=== PATIENT | male | born 1950 | race Caucasian/White ===

== ENCOUNTER 2018-06-15 06:38 | Inpatient (IN) | payer MEDICARE, OTHER ==
[~2018-06-15] VITALS: Ht 188 cm; Wt 123.2 kg
[~2018-06-15 06:38] MED LIST: ACET-66 PO; AUD NEB; DULO30CA2 PO; FERR-89 PO; KDUR20 PO; MENT3.5O TP; MIDO5TAB23 PO; PANT40TA25 PO; TEMA15CA PO
[2018-06-15] MEDS ORDERED: ALBUTEROL SULFATE 5 MG/ML 20 ML NEB SOLN [BULK] NEB ONE (07:00)
[2018-06-15] MEDS ORDERED: MethylPREDNISolone SOD SUCC 125 MG/2 ML VIAL IVP ONE (07:00)
[2018-06-15] MEDS ORDERED: IPRATROPIUM BROMIDE 0.5 MG/2.5 ML NEB SOLUTION NEB ONE (07:00)
[2018-06-15 07:26] LABS: BASOPHILS % (AUTO) 0.6 % (0.0-2.0); EOSINOPHILS % (AUTO) 2.8 % (1.0-6.0); HEMOGLOBIN 14.9 g/dL (13.5-17.5); LYMPHOCYTES # (AUTO) 4.4 K/uL (1.0-4.8); MEAN CORPUSCULAR HEMOGLOBIN 26.8 pg (26.0-34.0); MEAN CORPUSCULAR HGB CONC 30.4 G/dL (31.0-37.0); MEAN CORPUSCULAR VOLUME 88 fL (80-100); MONOCYTES % (AUTO) 10.3 % (2.0-9.0); NEUTROPHILS # (AUTO) 3.5 K/uL (1.8-7.7); NEUTROPHILS % (AUTO) 38.3 % (40.0-70.0); PLATELET COUNT (AUTO) 204 K/uL (150-450); RED BLOOD CELL COUNT(AUTO) 5.57 MIL/uL (4.50-5.90); RED CELL DISTRIBUTION WIDTH 17.3 % (11.5-14.5)
[2018-06-15 07:29] LABS: HEMATOCRIT 47.1 % (41-53)
[2018-06-15 07:36] LABS: ANION GAP 1 mmol/L (8-16); CALCIUM, TOTAL 8.4 mg/dL (8.8-10.5); CARBON DIOXIDE 38 mmol/L (22-29); CHLORIDE 99 mmol/L (98-107); CREATININE 0.81 mg/dL (0.60-1.30); GLOMERULAR FILTR. RATE CALC > 60 mL/min (>60); GLUCOSE,RANDOM 149 mg/dL (70-110); POTASSIUM 4.1 mmol/L (3.5-5.1); SODIUM SERUM 138 mmol/L (136-145); UREA NITROGEN, BLOOD 13 mg/dL (7-18)
[2018-06-15 07:42] LABS: ALANINE AMINOTRANSFERASE 11 U/L (12-78); ALKALINE PHOSPHATASE 65 U/L (46-116); ASPARTATE AMINOTRANSFERASE 20 U/L (15-37); BILIRUBIN,TOTAL 0.2 mg/dL (0.1-1.0); TOTAL PROTEIN, SERUM 6.6 g/dL (6.4-8.2)
[2018-06-15 07:49] LABS: B-TYPE NATRIURETIC PEPTIDE 47 pg/mL (0-100)
[2018-06-15 08:32] LABS: ABG A-A DIFF O2 73.8 mmHg (10-20.0); ABG CARBOXYHEMOGLOBIN 2.3 % (0.0-1.5); ABG METHEMOGLOBIN 0.3 % (0.0-1.5); ABG OXYGEN CONTENT 20.2 mL/dL (15.0-23.0); ABG OXYGEN SATURATION 93.6 % (95.0-98.0); ABG OXYHEMOGLOBIN 91.2 % (94.0-100.0); ABG TOTAL HEMOGLOBIN 15.7 G/dL (12.0-18.0); PO2, ARTERIAL BG 80.7 mmHg (79.0-87.0); SOURCE, BLOOD GAS ARTERIAL; TEMPERATURE, FAHRENHEIT, BG 98.6 FAHREN (96.0-98.6)
[2018-06-15 08:33] LABS: ABG PCO2 88 mmHg (35-45); ABG PH 7.182 (7.35-7.450); O2 DEVICE,BLOOD GAS AEROSOL MASK (ROOM AIR); SITE, BLOOD GAS RT RADIAL
[2018-06-15 09:51] LABS: ABG BASE EXCESS 7.9 mmol/L (-2.0-3.0); ABG CARBOXYHEMOGLOBIN 2.4 % (0.0-1.5); ABG HCO3 28.5 mmol/L (22.0-26.0); ABG METHEMOGLOBIN 0.2 % (0.0-1.5); ABG OXYGEN CONTENT 19.5 mL/dL (15.0-23.0); ABG OXYGEN SATURATION 89.3 % (95.0-98.0); PO2, ARTERIAL BG 62.2 mmHg (79.0-87.0); SOURCE, BLOOD GAS ARTERIAL; TEMPERATURE, FAHRENHEIT, BG 98.6 FAHREN (96.0-98.6)
[2018-06-15 09:52] LABS: ABG PCO2 76 mmHg (35-45); O2 DEVICE,BLOOD GAS BIPAP (ROOM AIR); SITE, BLOOD GAS RT RADIAL
[2018-06-15 09:53] LABS: INSPIRATORY TIME, BG 0.9 SEC
[2018-06-15] MEDS ORDERED: ACETAMINOPHEN 325 MG TABLET PO PRN ×2 (10:00→12:30)
[2018-06-15] MEDS ORDERED: ONDANSETRON HCL 4 MG/2 ML VIAL IVP PRN ×2 (10:00→12:30)
[2018-06-15] MEDS ORDERED: ALBUTEROL SULFATE 2.5 MG/0.5 ML NEB SOLUTION NEB SCH (11:00)
[2018-06-15] MEDS ORDERED: IPRATROPIUM BROMIDE 0.5 MG/2.5 ML NEB SOLUTION NEB SCH (11:00)
[2018-06-15] MEDS ORDERED: MAGNESIUM HYDROXIDE SUSPENSION 30 ML UDCUP PO PRN (12:30)
[2018-06-15] MEDS ORDERED: IPRATROPIUM BROMIDE 0.5 MG/2.5 ML NEB SOLUTION NEB PRN (12:30)
[2018-06-15] MEDS ORDERED: ALBUTEROL SULFATE 2.5 MG/0.5 ML NEB SOLUTION NEB PRN (12:30)
[2018-06-15] MEDS ORDERED: MORPHINE SULFATE 2 MG/ML SYRINGE IVP PRN (12:30)
[2018-06-15] MEDS ORDERED: BISACODYL 10 MG RECTAL RECTAL SUPPOSITORY PR PRN (12:30)
[2018-06-15] MEDS ORDERED: HYDROCODONE/ACETAMINOPHEN 5-325 MG TABLET PO PRN (12:30)
[2018-06-15] MEDS ORDERED: BENZONATATE 100 MG CAPSULE PO PRN (12:30)
[2018-06-15 14:02] VITALS: BP 109/60
[2018-06-15] MEDS ORDERED: LORazepam 2 MG/ML VIAL ONE (14:26)
[2018-06-15] MEDS ORDERED: LORazepam 2 MG/ML VIAL IVP PRN (14:30)
[2018-06-15 15:57] VITALS: BP 119/72
[2018-06-15] MEDS ORDERED: HALOPERIDOL LACTATE 5 MG/ML VIAL IVP PRN (16:30)
[2018-06-15] MEDS: MIDODRINE HCL 5 MG TABLET PO SCH ×2 (18:32→21:00)
[2018-06-15] MEDS: BENZONATATE 100 MG CAPSULE PO SCH ×2 (18:33→21:00)
[2018-06-15] MEDS: HEPARIN SODIUM,PORCINE 5,000 UNITS/ML VIAL SQ SCH ×2 (18:33→23:34)
[2018-06-15] MEDS: MethylPREDNISolone SOD SUCC 125 MG/2 ML VIAL IVP SCH ×2 (18:34→23:35)
[2018-06-15 18:54] LABS: LACTIC ACID 6.7 mmol/L (0.4-2.0)
[2018-06-15] MEDS: ALBUTEROL SULFATE 2.5 MG/0.5 ML NEB SOLUTION NEB SCH (19:43)
[2018-06-15] MEDS: IPRATROPIUM BROMIDE 0.5 MG/2.5 ML NEB SOLUTION NEB SCH (19:43)
[2018-06-15 19:48] VITALS: BP 115/43
[2018-06-15] MEDS: DOCUSATE SODIUM 100 MG CAPSULE PO SCH (20:44)
[2018-06-15] MEDS: GuaiFENesin SR 600 MG ER TABLET PO SCH (20:44)
[2018-06-15] MEDS ORDERED: SODIUM CHLORIDE 0.9% 250 ML IV ONE (21:54)
[2018-06-15] MEDS: PIPERACILLIN/TAZO 3.375 GM/D5W 50 ML IV SCH (21:55)
[2018-06-15 23:01] VITALS: BP 148/54
[2018-06-15] MEDS: HALOPERIDOL LACTATE 5 MG/ML VIAL IVP PRN (23:05)
[2018-06-16] MEDS: ALBUTEROL SULFATE 2.5 MG/0.5 ML NEB SOLUTION NEB SCH ×4 (02:34→19:43)
[2018-06-16] MEDS: IPRATROPIUM BROMIDE 0.5 MG/2.5 ML NEB SOLUTION NEB SCH ×4 (02:34→19:43)
[2018-06-16] MEDS: PIPERACILLIN/TAZO 3.375 GM/D5W 50 ML IV SCH ×4 (02:44→21:35)
[2018-06-16 04:53] VITALS: BP 100/53
[2018-06-16] MEDS: MethylPREDNISolone SOD SUCC 125 MG/2 ML VIAL IVP SCH ×4 (06:17→23:44)
[2018-06-16 07:37] VITALS: BP 107/50
[2018-06-16] MEDS: FLUTICASONE/VILANTEROL 200-25 MCG/INH INHALER [14] IH SCH (08:13)
[2018-06-16] MEDS: HEPARIN SODIUM,PORCINE 5,000 UNITS/ML VIAL SQ SCH ×3 (08:13→23:43)
[2018-06-16] MEDS: FERROUS SULFATE 325 MG EC TABLET PO SCH (08:13)
[2018-06-16] MEDS: BENZONATATE 100 MG CAPSULE PO SCH ×3 (08:14→20:23)
[2018-06-16] MEDS: GuaiFENesin SR 600 MG ER TABLET PO SCH ×2 (08:14→20:24)
[2018-06-16] MEDS: DOCUSATE SODIUM 100 MG CAPSULE PO SCH ×2 (08:14→21:00)
[2018-06-16] MEDS: MIDODRINE HCL 5 MG TABLET PO SCH ×3 (08:14→21:53)
[2018-06-16] MEDS: PANTOPRAZOLE SODIUM 40 MG DR TABLET PO SCH (08:14)
[2018-06-16] MEDS: HALOPERIDOL LACTATE 5 MG/ML VIAL IVP PRN ×2 (10:38→20:24)
[2018-06-16 10:39] LABS: ABG A-A DIFF O2 150.2 mmHg (10-20.0); ABG CARBOXYHEMOGLOBIN 1.5 % (0.0-1.5); ABG HCO3 31.5 mmol/L (22.0-26.0); ABG METHEMOGLOBIN 0.3 % (0.0-1.5); ABG OXYGEN CONTENT 19.1 mL/dL (15.0-23.0); ABG OXYGEN SATURATION 93.1 % (95.0-98.0); ABG OXYHEMOGLOBIN 91.4 % (94.0-100.0); ABG PCO2 58 mmHg (35-45); ABG PH 7.394 (7.35-7.450); ABG TOTAL HEMOGLOBIN 14.9 G/dL (12.0-18.0); PO2, ARTERIAL BG 67.8 mmHg (79.0-87.0); SOURCE, BLOOD GAS ARTERIAL; TEMPERATURE, FAHRENHEIT, BG 98.6 FAHREN (96.0-98.6)
[2018-06-16 10:42] LABS: INSPIRATORY TIME, BG 0.9 SEC; O2 DEVICE,BLOOD GAS BIPAP (ROOM AIR); SITE, BLOOD GAS RT RADIAL
[2018-06-16 11:53] VITALS: BP 102/54
[2018-06-16 16:44] VITALS: BP 111/58
[2018-06-16 19:37] VITALS: BP 134/71
[2018-06-16 23:36] VITALS: BP 115/66
[2018-06-17] MEDS: ALBUTEROL SULFATE 2.5 MG/0.5 ML NEB SOLUTION NEB SCH ×4 (02:27→19:25)
[2018-06-17] MEDS: IPRATROPIUM BROMIDE 0.5 MG/2.5 ML NEB SOLUTION NEB SCH ×4 (02:27→19:25)
[2018-06-17] MEDS: PIPERACILLIN/TAZO 3.375 GM/D5W 50 ML IV SCH ×4 (02:51→20:59)
[2018-06-17 05:03] VITALS: BP 117/64
[2018-06-17] MEDS: MethylPREDNISolone SOD SUCC 125 MG/2 ML VIAL IVP SCH ×4 (06:30→23:13)
[2018-06-17 07:21] LABS: BASOPHILS % (AUTO) 0.1 % (0.0-2.0); EOSINOPHILS % (AUTO) 0 % (1.0-6.0); HEMATOCRIT 43.5 % (41-53); HEMOGLOBIN 13.5 g/dL (13.5-17.5); LYMPHOCYTES # (AUTO) 0.7 K/uL (1.0-4.8); LYMPHOCYTES % (AUTO) 5.2 % (22.0-44.0); MEAN CORPUSCULAR HEMOGLOBIN 26.8 pg (26.0-34.0); MEAN CORPUSCULAR HGB CONC 31.2 G/dL (31.0-37.0); MEAN CORPUSCULAR VOLUME 86 fL (80-100); MONOCYTES # (AUTO) 0.4 K/uL (0.1-1.0); NEUTROPHILS # (AUTO) 11.7 K/uL (1.8-7.7); PLATELET COUNT (AUTO) 216 K/uL (150-450); RED BLOOD CELL COUNT(AUTO) 5.05 MIL/uL (4.50-5.90); RED CELL DISTRIBUTION WIDTH 16.7 % (11.5-14.5)
[2018-06-17 07:24] LABS: NEUTROPHILS % (AUTO) 91.7 % (40.0-70.0)
[2018-06-17 07:38] LABS: ANION GAP 4 mmol/L (8-16); CALCIUM, TOTAL 8.7 mg/dL (8.8-10.5); CARBON DIOXIDE 35 mmol/L (22-29); CHLORIDE 100 mmol/L (98-107); CREATININE 0.91 mg/dL (0.60-1.30); GLOMERULAR FILTR. RATE CALC > 60 mL/min (>60); GLUCOSE,RANDOM 190 mg/dL (70-110); POTASSIUM 4.2 mmol/L (3.5-5.1); SODIUM SERUM 139 mmol/L (136-145); UREA NITROGEN, BLOOD 23 mg/dL (7-18)
[2018-06-17 07:39] VITALS: BP 136/70
[2018-06-17 08:04] LABS: LACTIC ACID 2.5 mmol/L (0.4-2.0)
[2018-06-17] MEDS: GuaiFENesin SR 600 MG ER TABLET PO SCH ×2 (08:20→20:59)
[2018-06-17] MEDS: PANTOPRAZOLE SODIUM 40 MG DR TABLET PO SCH (08:20)
[2018-06-17] MEDS: FERROUS SULFATE 325 MG EC TABLET PO SCH (08:20)
[2018-06-17] MEDS: HEPARIN SODIUM,PORCINE 5,000 UNITS/ML VIAL SQ SCH ×3 (08:20→23:12)
[2018-06-17] MEDS: BENZONATATE 100 MG CAPSULE PO SCH ×3 (08:21→20:59)
[2018-06-17] MEDS: DOCUSATE SODIUM 100 MG CAPSULE PO SCH ×2 (08:21→20:59)
[2018-06-17] MEDS: FLUTICASONE/VILANTEROL 200-25 MCG/INH INHALER [14] IH SCH (08:21)
[2018-06-17] MEDS: MIDODRINE HCL 5 MG TABLET PO SCH ×3 (08:21→20:59)
[2018-06-17 10:55] VITALS: BP 126/67
[2018-06-17 15:40] VITALS: BP 130/72
[2018-06-17 19:31] VITALS: BP 136/69
[2018-06-17] MEDS: HALOPERIDOL LACTATE 5 MG/ML VIAL IVP PRN (23:13)
[2018-06-17 23:14] VITALS: BP 133/65
[2018-06-18] VITALS (9 sets, daily range): BP systolic 117–138; BP diastolic 56–76
[2018-06-18] MEDS: IPRATROPIUM BROMIDE 0.5 MG/2.5 ML NEB SOLUTION NEB SCH ×4 (01:44→19:59)
[2018-06-18] MEDS: ALBUTEROL SULFATE 2.5 MG/0.5 ML NEB SOLUTION NEB SCH ×4 (01:45→19:59)
[2018-06-18] MEDS: PIPERACILLIN/TAZO 3.375 GM/D5W 50 ML IV SCH ×4 (03:19→21:40)
[2018-06-18] MEDS: MethylPREDNISolone SOD SUCC 125 MG/2 ML VIAL IVP SCH (05:52)
[2018-06-18 07:43] LABS: BASOPHILS % (AUTO) 0.1 % (0.0-2.0); EOSINOPHILS % (AUTO) 0 % (1.0-6.0); HEMATOCRIT 44.1 % (41-53); HEMOGLOBIN 13.9 g/dL (13.5-17.5); LYMPHOCYTES # (AUTO) 0.6 K/uL (1.0-4.8); LYMPHOCYTES % (AUTO) 7.4 % (22.0-44.0); MEAN CORPUSCULAR HEMOGLOBIN 27.2 pg (26.0-34.0); MEAN CORPUSCULAR HGB CONC 31.6 G/dL (31.0-37.0); MEAN CORPUSCULAR VOLUME 86 fL (80-100); MONOCYTES # (AUTO) 0.4 K/uL (0.1-1.0); MONOCYTES % (AUTO) 4.6 % (2.0-9.0); NEUTROPHILS # (AUTO) 6.9 K/uL (1.8-7.7); PLATELET COUNT (AUTO) 202 K/uL (150-450); RED BLOOD CELL COUNT(AUTO) 5.12 MIL/uL (4.50-5.90)
[2018-06-18 07:46] LABS: NEUTROPHILS % (AUTO) 87.9 % (40.0-70.0)
[2018-06-18 07:57] LABS: ANION GAP 5 mmol/L (8-16); CALCIUM, TOTAL 8.8 mg/dL (8.8-10.5); CARBON DIOXIDE 36 mmol/L (22-29); CHLORIDE 100 mmol/L (98-107); CREATININE 0.82 mg/dL (0.60-1.30); GLOMERULAR FILTR. RATE CALC > 60 mL/min (>60); GLUCOSE,RANDOM 183 mg/dL (70-110); POTASSIUM 3.7 mmol/L (3.5-5.1); SODIUM SERUM 141 mmol/L (136-145); UREA NITROGEN, BLOOD 18 mg/dL (7-18)
[2018-06-18] MEDS: HEPARIN SODIUM,PORCINE 5,000 UNITS/ML VIAL SQ SCH ×3 (08:43→23:40)
[2018-06-18] MEDS: GuaiFENesin SR 600 MG ER TABLET PO SCH ×2 (08:43→20:31)
[2018-06-18] MEDS: BENZONATATE 100 MG CAPSULE PO SCH ×3 (08:43→20:32)
[2018-06-18] MEDS: FLUTICASONE/VILANTEROL 200-25 MCG/INH INHALER [14] IH SCH (08:43)
[2018-06-18] MEDS: MIDODRINE HCL 5 MG TABLET PO SCH ×3 (08:43→20:32)
[2018-06-18] MEDS: FERROUS SULFATE 325 MG EC TABLET PO SCH (08:44)
[2018-06-18] MEDS: PANTOPRAZOLE SODIUM 40 MG DR TABLET PO SCH (08:44)
[2018-06-18] MEDS: DOCUSATE SODIUM 100 MG CAPSULE PO SCH ×2 (08:47→20:35)
[2018-06-18] MEDS: MethylPREDNISolone SOD SUCC 40 MG/ML VIAL IVP SCH ×3 (12:10→23:40)
[2018-06-19] MEDS: PIPERACILLIN/TAZO 3.375 GM/D5W 50 ML IV SCH ×4 (02:44→20:38)
[2018-06-19] MEDS: ALBUTEROL SULFATE 2.5 MG/0.5 ML NEB SOLUTION NEB SCH ×4 (02:53→20:23)
[2018-06-19] MEDS: IPRATROPIUM BROMIDE 0.5 MG/2.5 ML NEB SOLUTION NEB SCH ×4 (02:53→20:23)
[2018-06-19 04:23] VITALS: BP 117/61
[2018-06-19] MEDS: MethylPREDNISolone SOD SUCC 40 MG/ML VIAL IVP SCH ×4 (05:45→23:23)
[2018-06-19 07:21] LABS: EOSINOPHILS % (AUTO) 0 % (1.0-6.0); HEMATOCRIT 43.8 % (41-53); HEMOGLOBIN 13.7 g/dL (13.5-17.5); LYMPHOCYTES # (AUTO) 0.7 K/uL (1.0-4.8); LYMPHOCYTES % (AUTO) 9.1 % (22.0-44.0); MEAN CORPUSCULAR HGB CONC 31.3 G/dL (31.0-37.0); MEAN CORPUSCULAR VOLUME 86 fL (80-100); MONOCYTES # (AUTO) 0.5 K/uL (0.1-1.0); MONOCYTES % (AUTO) 6.2 % (2.0-9.0); NEUTROPHILS # (AUTO) 6.5 K/uL (1.8-7.7); NEUTROPHILS % (AUTO) 84.7 % (40.0-70.0); PLATELET COUNT (AUTO) 194 K/uL (150-450); RED BLOOD CELL COUNT(AUTO) 5.08 MIL/uL (4.50-5.90)
[2018-06-19 07:26] LABS: ANION GAP 1 mmol/L (8-16); CALCIUM, TOTAL 8.6 mg/dL (8.8-10.5); CARBON DIOXIDE 37 mmol/L (22-29); CHLORIDE 102 mmol/L (98-107); CREATININE 0.84 mg/dL (0.60-1.30); GLOMERULAR FILTR. RATE CALC > 60 mL/min (>60); GLUCOSE,RANDOM 155 mg/dL (70-110); SODIUM SERUM 140 mmol/L (136-145); UREA NITROGEN, BLOOD 18 mg/dL (7-18)
[2018-06-19 07:38] VITALS: BP 131/71
[2018-06-19] MEDS: FERROUS SULFATE 325 MG EC TABLET PO SCH (08:40)
[2018-06-19] MEDS: MIDODRINE HCL 5 MG TABLET PO SCH ×3 (08:40→20:37)
[2018-06-19] MEDS: PANTOPRAZOLE SODIUM 40 MG DR TABLET PO SCH (08:40)
[2018-06-19] MEDS: HEPARIN SODIUM,PORCINE 5,000 UNITS/ML VIAL SQ SCH ×3 (08:40→23:23)
[2018-06-19] MEDS: BENZONATATE 100 MG CAPSULE PO SCH ×3 (08:40→20:37)
[2018-06-19] MEDS: FLUTICASONE/VILANTEROL 200-25 MCG/INH INHALER [14] IH SCH (08:40)
[2018-06-19] MEDS: DOCUSATE SODIUM 100 MG CAPSULE PO SCH ×2 (08:40→20:37)
[2018-06-19] MEDS: GuaiFENesin SR 600 MG ER TABLET PO SCH ×2 (08:40→20:37)
[2018-06-19 11:44] VITALS: BP 124/62
[2018-06-19] MEDS ORDERED: SODIUM CHLORIDE 0.9% 100 ML ONE (15:08)
[2018-06-19 15:45] VITALS: BP 111/46
[2018-06-19 19:42] VITALS: BP 131/64
[2018-06-19] MEDS ORDERED: SODIUM CHLORIDE 0.9% 250 ML IV ONE (23:27)
[2018-06-20] VITALS (7 sets, daily range): BP systolic 112–150; BP diastolic 50–80
[2018-06-20] MEDS: IPRATROPIUM BROMIDE 0.5 MG/2.5 ML NEB SOLUTION NEB SCH ×4 (02:22→19:57)
[2018-06-20] MEDS: ALBUTEROL SULFATE 2.5 MG/0.5 ML NEB SOLUTION NEB SCH ×4 (02:23→19:57)
[2018-06-20] MEDS: PIPERACILLIN/TAZO 3.375 GM/D5W 50 ML IV SCH ×4 (02:55→20:18)
[2018-06-20] MEDS: MethylPREDNISolone SOD SUCC 40 MG/ML VIAL IVP SCH ×4 (05:47→22:52)
[2018-06-20] MEDS: PANTOPRAZOLE SODIUM 40 MG DR TABLET PO SCH (08:50)
[2018-06-20] MEDS: BENZONATATE 100 MG CAPSULE PO SCH ×3 (08:50→20:18)
[2018-06-20] MEDS: HEPARIN SODIUM,PORCINE 5,000 UNITS/ML VIAL SQ SCH ×3 (08:51→22:53)
[2018-06-20] MEDS: DOCUSATE SODIUM 100 MG CAPSULE PO SCH ×2 (08:51→20:18)
[2018-06-20] MEDS: FLUTICASONE/VILANTEROL 200-25 MCG/INH INHALER [14] IH SCH (08:51)
[2018-06-20] MEDS: FERROUS SULFATE 325 MG EC TABLET PO SCH (08:51)
[2018-06-20] MEDS: GuaiFENesin SR 600 MG ER TABLET PO SCH ×2 (08:51→20:18)
[2018-06-20] MEDS: MIDODRINE HCL 5 MG TABLET PO SCH ×3 (08:51→20:18)
[2018-06-20] MEDS ORDERED: LEVO500 PO (15:19)
[2018-06-20] MEDS ORDERED: BENZ-51 PO (15:20)
[2018-06-20] MEDS ORDERED: AUD NEB (15:20)
[2018-06-20] MEDS ORDERED: FERR-89 PO (15:21)
[2018-06-20] MEDS ORDERED: DSS100 PO (15:21)
[2018-06-20] MEDS ORDERED: FLUT1BLS IH (15:22)
[2018-06-20] MEDS ORDERED: GUAI600T30 PO (15:23)
[2018-06-20] MEDS ORDERED: HEPA500018 SQ (15:24)
[2018-06-20] MEDS ORDERED: IPRNEB IH (15:25)
[2018-06-20] MEDS ORDERED: MIDO5TAB23 PO (15:26)
[2018-06-20] MEDS: ZOLPIDEM TARTRATE 5 MG TABLET PO PRN (22:53)
[2018-06-21] VITALS (16 sets, daily range): BP systolic 94–149; BP diastolic 42–74
[2018-06-21] MEDS: PIPERACILLIN/TAZO 3.375 GM/D5W 50 ML IV SCH ×4 (02:16→20:36)
[2018-06-21] MEDS: IPRATROPIUM BROMIDE 0.5 MG/2.5 ML NEB SOLUTION NEB SCH ×4 (02:32→19:48)
[2018-06-21] MEDS: ALBUTEROL SULFATE 2.5 MG/0.5 ML NEB SOLUTION NEB SCH ×4 (02:33→19:48)
[2018-06-21] MEDS: MethylPREDNISolone SOD SUCC 40 MG/ML VIAL IVP SCH (04:53)
[2018-06-21 07:20] LABS: INR 1.1 (0.9-1.1); PROTHROMBIN TIME 11.2 SEC (9.4-11.6)
[2018-06-21 07:33] LABS: B-TYPE NATRIURETIC PEPTIDE 373 pg/mL (0-100)
[2018-06-21 07:38] LABS: ANION GAP 3 mmol/L (8-16); CALCIUM, TOTAL 8.6 mg/dL (8.8-10.5); CARBON DIOXIDE 36 mmol/L (22-29); CHLORIDE 99 mmol/L (98-107); CREATINE KINASE, TOTAL ONLY 20 U/L (39-308); GLOMERULAR FILTR. RATE CALC > 60 mL/min (>60); GLUCOSE,RANDOM 206 mg/dL (70-110); POTASSIUM 3.9 mmol/L (3.5-5.1); SODIUM SERUM 138 mmol/L (136-145); UREA NITROGEN, BLOOD 19 mg/dL (7-18)
[2018-06-21] MEDS: FLUTICASONE/VILANTEROL 200-25 MCG/INH INHALER [14] IH SCH (08:32)
[2018-06-21] MEDS: BENZONATATE 100 MG CAPSULE PO SCH ×3 (08:32→20:37)
[2018-06-21] MEDS: PredniSONE 20 MG TABLET PO SCH (08:32)
[2018-06-21] MEDS: GuaiFENesin SR 600 MG ER TABLET PO SCH ×2 (08:32→20:37)
[2018-06-21] MEDS: HEPARIN SODIUM,PORCINE 5,000 UNITS/ML VIAL SQ SCH ×3 (08:32→23:06)
[2018-06-21] MEDS: PANTOPRAZOLE SODIUM 40 MG DR TABLET PO SCH (08:32)
[2018-06-21] MEDS: FERROUS SULFATE 325 MG EC TABLET PO SCH (08:32)
[2018-06-21] MEDS: MIDODRINE HCL 5 MG TABLET PO SCH ×3 (08:32→20:37)
[2018-06-21] MEDS: DOCUSATE SODIUM 100 MG CAPSULE PO SCH ×2 (08:33→20:37)
[2018-06-21] MEDS ORDERED: SODIUM BICARBONATE 50 MEQ/50 ML VIAL ONE (14:06)
[2018-06-21] MEDS ORDERED: LIDOCAINE/PF 1% 30 ML VIAL ONE (14:06)
[2018-06-21] MEDS: CeFAZolin 1 GM/DEXTROSE 50 ML IV SCH (17:26)
[2018-06-21] MEDS: ZOLPIDEM TARTRATE 5 MG TABLET PO PRN (23:06)
[2018-06-22] MEDS: CeFAZolin 1 GM/DEXTROSE 50 ML IV SCH (01:54)
[2018-06-22] MEDS: IPRATROPIUM BROMIDE 0.5 MG/2.5 ML NEB SOLUTION NEB SCH ×4 (02:15→20:21)
[2018-06-22] MEDS: ALBUTEROL SULFATE 2.5 MG/0.5 ML NEB SOLUTION NEB SCH ×4 (02:15→20:21)
[2018-06-22] MEDS: PIPERACILLIN/TAZO 3.375 GM/D5W 50 ML IV SCH ×3 (02:21→15:09)
[2018-06-22 05:30] VITALS: BP 112/56
[2018-06-22 06:42] VITALS: BP 112/56
[2018-06-22 07:35] VITALS: BP 121/61
[2018-06-22] MEDS: FLUTICASONE/VILANTEROL 200-25 MCG/INH INHALER [14] IH SCH (08:50)
[2018-06-22] MEDS: MIDODRINE HCL 5 MG TABLET PO SCH ×3 (08:51→20:06)
[2018-06-22] MEDS: BENZONATATE 100 MG CAPSULE PO SCH ×3 (08:51→20:06)
[2018-06-22] MEDS: DOCUSATE SODIUM 100 MG CAPSULE PO SCH ×2 (08:51→20:06)
[2018-06-22] MEDS: HEPARIN SODIUM,PORCINE 5,000 UNITS/ML VIAL SQ SCH ×2 (08:51→15:10)
[2018-06-22] MEDS: PredniSONE 20 MG TABLET PO SCH (08:51)
[2018-06-22] MEDS: FERROUS SULFATE 325 MG EC TABLET PO SCH (08:51)
[2018-06-22] MEDS: GuaiFENesin SR 600 MG ER TABLET PO SCH ×2 (08:51→20:06)
[2018-06-22] MEDS: PANTOPRAZOLE SODIUM 40 MG DR TABLET PO SCH (08:51)
[2018-06-22] MEDS: HALOPERIDOL LACTATE 5 MG/ML VIAL IVP PRN ×2 (09:50→15:09)
[2018-06-22 11:48] VITALS: BP 115/58
[2018-06-22 15:52] VITALS: BP 106/58
== END 2018-06-22 20:55 | DRG 260 ==
LOC: EMS 06:38 → 5S 11:46
PROVIDERS: ADMIT Internal Medicine; ATTEND Internal Medicine
PROC: 5A09357 Assistance with Respiratory Ventilation, Less than 24 Consecutive Hours, Continuous Positive Airway Pressure (ICD-10-PCS; 2018-06-15)
PROC: 0JH632Z Insertion of Monitoring Device into Chest Subcutaneous Tissue and Fascia, Percutaneous Approach (ICD-10-PCS; principal; 2018-06-21)
DX: I47.2 Ventricular tachycardia (principal); G92 Toxic encephalopathy; J18.9 Pneumonia, unspecified organism; J96.21 Acute and chronic respiratory failure with hypoxia; J44.1 Chronic obstructive pulmonary disease with (acute) exacerbation; E66.2 Morbid (severe) obesity with alveolar hypoventilation; E87.2 Acidosis; I50.30 Unspecified diastolic (congestive) heart failure; J44.0 Chronic obstructive pulmonary disease with (acute) lower respiratory infection; J98.11 Atelectasis; K55.9 Vascular disorder of intestine, unspecified; F32.9 Major depressive disorder, single episode, unspecified; M19.90 Unspecified osteoarthritis, unspecified site; I95.9 Hypotension, unspecified; G47.00 Insomnia, unspecified; L27.0 Generalized skin eruption due to drugs and medicaments taken internally; N40.0 Benign prostatic hyperplasia without lower urinary tract symptoms; K21.9 Gastro-esophageal reflux disease without esophagitis; D64.9 Anemia, unspecified; T42.4X5A Adverse effect of benzodiazepines, initial encounter; G89.4 Chronic pain syndrome; Y92.89 Other specified places as the place of occurrence of the external cause; Z68.34 Body mass index [BMI] 34.0-34.9, adult; Z87.891 Personal history of nicotine dependence
CPT/HCPCS: 36600; 70450; 71250; 82805; 83605; 83735; 84145; 93005; 93306; 94640; 94644; 94660; 96374; 97163; 97530; 99291; G0378; J0690; J1630; J1644; J2060; J2543; J2920; J2930; J3490; J7050

== ENCOUNTER 2019-02-09 08:59 | Inpatient (IN) | payer MEDICARE, OTHER ==
[~2019-02-09] VITALS: Ht 180.3 cm; Wt 111.5 kg
[~2019-02-09 08:59] MED LIST changes: +A20IH1 IH; -ACET-66 PO; -AUD NEB; +BENZ-51 PO; +CEFTR1IV IV; +DSS100 PO; -DULO30CA2 PO; +FLUT1BLS IH; +GUAI600T30 PO; +GUAIF600 PO; +HEPA500018 SQ; +IPRNEB NEB; -KDUR20 PO; +LEVO500 PO; -MENT3.5O TP; -MIDO5TAB23 PO; +MIDO5TAB29 PO; -PANT40TA25 PO
[2019-02-09] MEDS ORDERED: ADV250 IH (09:30)
[2019-02-09] MEDS ORDERED: ONDANSETRON HCL 4 MG/2 ML VIAL IVP ONE (10:00)
[2019-02-09] MEDS ORDERED: MORPHINE SULFATE 4 MG/ML SYRINGE IVP ONE (10:00)
[2019-02-09 10:16] LABS: APPEARANCE,URINE TURBID (CLEAR); BILIRUBIN,URINE PRELIM. POSITIVE (NEGATIVE); GLUCOSE, URINE (UA) 100 mg/dL (NEGATIVE); KETONES,URINE 40 mg/dL (NEGATIVE); LEUKOCYTE ESTERASE ,URINE LARGE (NEGATIVE); NITRATE,URINE POSITIVE (NEGATIVE); OCCULT BLOOD,URINE LARGE (NEGATIVE); PROTEIN,URINE SEE CONFIRM (NEGATIVE)
[2019-02-09 10:19] LABS: BACTERIA,URINE Few /HPF (None Seen); RBC,URINE Full Field /HPF (0-2); SQUAMOUS EPITHELIAL CELL,UR Rare /LPF (None Seen)
[2019-02-09 10:20] LABS: SULFOSALICYLIC ACID,URINE 4+ (Negative)
[2019-02-09 10:25] LABS: BASOPHILS % (AUTO) 0.5 % (0.0-2.0); EOSINOPHILS % (AUTO) 2.8 % (1.0-6.0); HEMATOCRIT 42.6 % (41-53); HEMOGLOBIN 14.1 g/dL (13.5-17.5); LYMPHOCYTES # (AUTO) 2.2 K/uL (1.0-4.8); MEAN CORPUSCULAR HEMOGLOBIN 29.5 pg (26.0-34.0); MEAN CORPUSCULAR HGB CONC 33.1 G/dL (31.0-37.0); MEAN CORPUSCULAR VOLUME 89 fL (80-100); MONOCYTES # (AUTO) 1.3 K/uL (0.1-1.0); MONOCYTES % (AUTO) 8.5 % (2.0-9.0); NEUTROPHILS # (AUTO) 11.5 K/uL (1.8-7.7); NEUTROPHILS % (AUTO) 74.2 % (40.0-70.0); PLATELET COUNT (AUTO) 287 K/uL (150-450); RED BLOOD CELL COUNT(AUTO) 4.78 MIL/uL (4.50-5.90)
[2019-02-09 10:34] LABS: CALCIUM, TOTAL 9.3 mg/dL (8.8-10.5); CREATININE 2.01 mg/dL (0.60-1.30); POTASSIUM 4.4 mmol/L (3.5-5.1)
[2019-02-09 10:40] LABS: ALBUMIN 2.8 g/dL (3.4-5.0); BILIRUBIN,TOTAL 0.4 mg/dL (0.1-1.0); TOTAL PROTEIN, SERUM 8.3 g/dL (6.4-8.2)
[2019-02-09] MEDS ORDERED: ONDANSETRON HCL 4 MG/2 ML VIAL IVP PRN ×2 (14:00→14:30)
[2019-02-09] MEDS ORDERED: 0.9% SODIUM CHLORIDE 10 ML SYRINGE IVP PRN (14:00)
[2019-02-09] MEDS ORDERED: ACETAMINOPHEN 325 MG TABLET PO PRN (14:00)
[2019-02-09] MEDS ORDERED: IPRATROPIUM BROMIDE 0.5 MG/2.5 ML NEB SOLUTION NEB PRN (14:30)
[2019-02-09] MEDS ORDERED: BISACODYL 10 MG RECTAL RECTAL SUPPOSITORY PR PRN (14:30)
[2019-02-09] MEDS: PIPERACILLIN/TAZO 3.375 GM/D5W 50 ML IV SCH ×2 (15:43→22:20)
[2019-02-09] MEDS: SODIUM CHLORIDE 0.9% 1,000 ML IV SCH (15:58)
[2019-02-09] MEDS: ALBUTEROL SULFATE 5 MG/ML 20 ML NEB SOLN [BULK] NEB SCH ×2 (16:00→20:00)
[2019-02-09 17:53] VITALS: BP 124/72
[2019-02-09] MEDS: IPRATROPIUM BROMIDE 0.5 MG/2.5 ML NEB SOLUTION NEB SCH (18:00)
[2019-02-09] MEDS: DEXTROSE 5%-0.45% SODIUM CHL 1,000 ML IV SCH (18:35)
[2019-02-09 19:13] VITALS: BP 100/61
[2019-02-09] MEDS ORDERED: INFLUENZA VIRUS VACCINE QVS 2019-20 (3YR+)/PF 60 MCG/0.5 ML SYRINGE IM ONE (19:15)
[2019-02-09] MEDS ORDERED: HEPARIN SODIUM,PORCINE 5,000 UNITS/ML VIAL SQ SCH (21:00)
[2019-02-09] MEDS: DOCUSATE SODIUM 100 MG CAPSULE PO SCH (22:19)
[2019-02-09] MEDS: TEMAZEPAM 15 MG CAPSULE PO SCH (22:19)
[2019-02-09] MEDS: FAMOTIDINE 20 MG TABLET PO SCH (22:20)
[2019-02-09] MEDS: ACETAMINOPHEN 325 MG TABLET PO PRN (22:55)
[2019-02-09 23:42] VITALS: BP 97/55
[2019-02-10] MEDS: ALBUTEROL SULFATE 5 MG/ML 20 ML NEB SOLN [BULK] NEB SCH ×4 (02:00→20:41)
[2019-02-10] MEDS: ALBUTEROL SULFATE 2.5 MG/0.5 ML NEB SOLUTION NEB PRN ×2 (02:21→14:03)
[2019-02-10] MEDS: IPRATROPIUM BROMIDE 0.5 MG/2.5 ML NEB SOLUTION NEB SCH ×4 (02:21→18:00)
[2019-02-10] MEDS: PIPERACILLIN/TAZO 3.375 GM/D5W 50 ML IV SCH ×4 (03:47→22:49)
[2019-02-10] MEDS: SODIUM CHLORIDE 0.9% 1,000 ML IV SCH (03:50)
[2019-02-10 04:47] VITALS: BP 110/68
[2019-02-10] MEDS: DEXTROSE 5%-0.45% SODIUM CHL 1,000 ML IV SCH (05:59)
[2019-02-10 06:16] LABS: BASOPHILS % (AUTO) 0.4 % (0.0-2.0); EOSINOPHILS % (AUTO) 4.8 % (1.0-6.0); HEMATOCRIT 38.2 % (41-53); HEMOGLOBIN 13.2 g/dL (13.5-17.5); LYMPHOCYTES # (AUTO) 2.4 K/uL (1.0-4.8); LYMPHOCYTES % (AUTO) 15.9 % (22.0-44.0); MEAN CORPUSCULAR HEMOGLOBIN 30.8 pg (26.0-34.0); MEAN CORPUSCULAR HGB CONC 34.6 G/dL (31.0-37.0); MEAN CORPUSCULAR VOLUME 89 fL (80-100); MONOCYTES # (AUTO) 1.4 K/uL (0.1-1.0); MONOCYTES % (AUTO) 9.5 % (2.0-9.0); NEUTROPHILS # (AUTO) 10.3 K/uL (1.8-7.7); NEUTROPHILS % (AUTO) 69.4 % (40.0-70.0); PLATELET COUNT (AUTO) 285 K/uL (150-450)
[2019-02-10 06:29] LABS: CREATININE 2.1 mg/dL (0.60-1.30); MAGNESIUM 2.3 mg/dL (1.80-2.40); PHOSPHORUS 4.5 mg/dL (2.5-4.9)
[2019-02-10 07:21] VITALS: BP 92/51
[2019-02-10 07:49] VITALS: BP 100/63
[2019-02-10] MEDS: FERROUS SULFATE 325 MG EC TABLET PO SCH (13:49)
[2019-02-10] MEDS: DOCUSATE SODIUM 100 MG CAPSULE PO SCH ×2 (13:49→20:24)
[2019-02-10] MEDS: FAMOTIDINE 20 MG TABLET PO SCH ×2 (13:49→20:24)
[2019-02-10] MEDS: FLUTICASONE/VILANTEROL 200-25 MCG/INH INHALER [14] IH SCH (13:54)
[2019-02-10] MEDS: ACETAMINOPHEN 325 MG TABLET PO PRN ×2 (13:57→20:24)
[2019-02-10] MEDS ORDERED: DOCU-275 PO (15:05)
[2019-02-10 15:34] VITALS: BP 89/55
[2019-02-10] MEDS: DEXTROSE 5%-0.9% SODIUM CHL 1,000 ML IV SCH (15:37)
[2019-02-10 15:46] VITALS: BP 99/70
[2019-02-10] MEDS: TEMAZEPAM 15 MG CAPSULE PO SCH (20:24)
[2019-02-10 20:44] VITALS: BP 104/62
[2019-02-10] MEDS: MAGNESIUM HYDROXIDE SUSPENSION 30 ML UDCUP PO PRN (23:15)
[2019-02-11 00:30] VITALS: BP 128/74
[2019-02-11] MEDS: ALBUTEROL SULFATE 5 MG/ML 20 ML NEB SOLN [BULK] NEB SCH ×4 (02:00→20:04)
[2019-02-11] MEDS: DEXTROSE 5%-0.9% SODIUM CHL 1,000 ML IV SCH ×2 (03:04→13:36)
[2019-02-11] MEDS: PIPERACILLIN/TAZO 3.375 GM/D5W 50 ML IV SCH ×4 (04:30→22:50)
[2019-02-11 04:39] VITALS: BP 106/72
[2019-02-11] MEDS: IPRATROPIUM BROMIDE 0.5 MG/2.5 ML NEB SOLUTION NEB SCH ×4 (05:01→20:04)
[2019-02-11 07:32] LABS: BASOPHILS % (AUTO) 0.4 % (0.0-2.0); EOSINOPHILS % (AUTO) 7.1 % (1.0-6.0); HEMATOCRIT 32.2 % (41-53); HEMOGLOBIN 11.1 g/dL (13.5-17.5); LYMPHOCYTES # (AUTO) 1.4 K/uL (1.0-4.8); LYMPHOCYTES % (AUTO) 13.1 % (22.0-44.0); MEAN CORPUSCULAR HEMOGLOBIN 30.7 pg (26.0-34.0); MEAN CORPUSCULAR HGB CONC 34.4 G/dL (31.0-37.0); MEAN CORPUSCULAR VOLUME 89 fL (80-100); MONOCYTES # (AUTO) 0.9 K/uL (0.1-1.0); MONOCYTES % (AUTO) 8.7 % (2.0-9.0); NEUTROPHILS # (AUTO) 7.6 K/uL (1.8-7.7); NEUTROPHILS % (AUTO) 70.7 % (40.0-70.0); PLATELET COUNT (AUTO) 261 K/uL (150-450); RED BLOOD CELL COUNT(AUTO) 3.61 MIL/uL (4.50-5.90); RED CELL DISTRIBUTION WIDTH 15.3 % (11.5-14.5)
[2019-02-11] MEDS: ALBUTEROL SULFATE 2.5 MG/0.5 ML NEB SOLUTION NEB PRN (07:32)
[2019-02-11 07:47] LABS: CREATININE 1.97 mg/dL (0.60-1.30); MAGNESIUM 2.8 mg/dL (1.80-2.40); PHOSPHORUS 3.6 mg/dL (2.5-4.9); POTASSIUM 3.6 mmol/L (3.5-5.1)
[2019-02-11] MEDS: DOCUSATE SODIUM 100 MG CAPSULE PO SCH ×2 (07:54→21:04)
[2019-02-11] MEDS: FAMOTIDINE 20 MG TABLET PO SCH ×2 (08:04→21:04)
[2019-02-11] MEDS: FERROUS SULFATE 325 MG EC TABLET PO SCH (08:04)
[2019-02-11 08:14] VITALS: BP 103/56
[2019-02-11] MEDS: FLUTICASONE/VILANTEROL 200-25 MCG/INH INHALER [14] IH SCH (08:31)
[2019-02-11 11:37] VITALS: BP 122/66
[2019-02-11 16:08] VITALS: BP 112/69
[2019-02-11 20:47] VITALS: BP 118/81
[2019-02-11] MEDS: TEMAZEPAM 15 MG CAPSULE PO SCH (21:04)
[2019-02-12] VITALS (7 sets, daily range): BP systolic 97–133; BP diastolic 51–98
[2019-02-12] MEDS: ALBUTEROL SULFATE 5 MG/ML 20 ML NEB SOLN [BULK] NEB SCH ×4 (02:00→20:00)
[2019-02-12] MEDS: ACETAMINOPHEN 325 MG TABLET PO PRN ×4 (02:04→22:49)
[2019-02-12] MEDS: DEXTROSE 5%-0.9% SODIUM CHL 1,000 ML IV SCH ×3 (02:04→22:37)
[2019-02-12] MEDS: IPRATROPIUM BROMIDE 0.5 MG/2.5 ML NEB SOLUTION NEB SCH ×4 (02:06→20:00)
[2019-02-12] MEDS: ALBUTEROL SULFATE 2.5 MG/0.5 ML NEB SOLUTION NEB PRN ×2 (02:06→13:47)
[2019-02-12] MEDS: PIPERACILLIN/TAZO 3.375 GM/D5W 50 ML IV SCH ×4 (04:36→22:37)
[2019-02-12 07:48] LABS: BASOPHILS % (AUTO) 0.4 % (0.0-2.0); EOSINOPHILS % (AUTO) 8.9 % (1.0-6.0); HEMATOCRIT 31.3 % (41-53); HEMOGLOBIN 10.3 g/dL (13.5-17.5); LYMPHOCYTES # (AUTO) 1.7 K/uL (1.0-4.8); LYMPHOCYTES % (AUTO) 19.6 % (22.0-44.0); MEAN CORPUSCULAR HEMOGLOBIN 29.7 pg (26.0-34.0); MEAN CORPUSCULAR HGB CONC 32.9 G/dL (31.0-37.0); MEAN CORPUSCULAR VOLUME 90 fL (80-100); MONOCYTES # (AUTO) 0.7 K/uL (0.1-1.0); MONOCYTES % (AUTO) 8.2 % (2.0-9.0); NEUTROPHILS # (AUTO) 5.6 K/uL (1.8-7.7); NEUTROPHILS % (AUTO) 62.9 % (40.0-70.0); PLATELET COUNT (AUTO) 232 K/uL (150-450); RED BLOOD CELL COUNT(AUTO) 3.47 MIL/uL (4.50-5.90); RED CELL DISTRIBUTION WIDTH 15.1 % (11.5-14.5)
[2019-02-12 08:05] LABS: CALCIUM, TOTAL 7.9 mg/dL (8.8-10.5); CREATININE 1.74 mg/dL (0.60-1.30); MAGNESIUM 2.9 mg/dL (1.80-2.40); PHOSPHORUS 3.1 mg/dL (2.5-4.9); POTASSIUM 3.4 mmol/L (3.5-5.1)
[2019-02-12] MEDS: FERROUS SULFATE 325 MG EC TABLET PO SCH (08:05)
[2019-02-12] MEDS: DOCUSATE SODIUM 100 MG CAPSULE PO SCH ×2 (08:06→20:15)
[2019-02-12] MEDS: FLUTICASONE/VILANTEROL 200-25 MCG/INH INHALER [14] IH SCH (08:06)
[2019-02-12] MEDS: FAMOTIDINE 20 MG TABLET PO SCH ×2 (08:06→20:15)
[2019-02-12] MEDS ORDERED: POTASSIUM CHLORIDE 10 MEQ ER TABLET PO ONE (09:15)
[2019-02-12] MEDS: TEMAZEPAM 15 MG CAPSULE PO SCH (20:15)
[2019-02-12] MEDS: MAGNESIUM HYDROXIDE SUSPENSION 30 ML UDCUP PO PRN (22:49)
[2019-02-13] MEDS: IPRATROPIUM BROMIDE 0.5 MG/2.5 ML NEB SOLUTION NEB SCH ×4 (02:00→19:46)
[2019-02-13] MEDS: ALBUTEROL SULFATE 5 MG/ML 20 ML NEB SOLN [BULK] NEB SCH ×4 (02:00→20:00)
[2019-02-13] MEDS: PIPERACILLIN/TAZO 3.375 GM/D5W 50 ML IV SCH ×4 (03:53→20:55)
[2019-02-13 04:45] VITALS: BP 108/67
[2019-02-13 07:11] VITALS: BP 103/59
[2019-02-13 07:28] LABS: BASOPHILS % (AUTO) 0.5 % (0.0-2.0); EOSINOPHILS % (AUTO) 10.1 % (1.0-6.0); HEMATOCRIT 31.6 % (41-53); HEMOGLOBIN 10.5 g/dL (13.5-17.5); LYMPHOCYTES # (AUTO) 1.5 K/uL (1.0-4.8); LYMPHOCYTES % (AUTO) 19.5 % (22.0-44.0); MEAN CORPUSCULAR HGB CONC 33.1 G/dL (31.0-37.0); MEAN CORPUSCULAR VOLUME 91 fL (80-100); MONOCYTES # (AUTO) 0.7 K/uL (0.1-1.0); MONOCYTES % (AUTO) 8.5 % (2.0-9.0); NEUTROPHILS # (AUTO) 4.7 K/uL (1.8-7.7); NEUTROPHILS % (AUTO) 61.4 % (40.0-70.0); PLATELET COUNT (AUTO) 244 K/uL (150-450); RED BLOOD CELL COUNT(AUTO) 3.49 MIL/uL (4.50-5.90); RED CELL DISTRIBUTION WIDTH 14.8 % (11.5-14.5)
[2019-02-13 07:47] LABS: CALCIUM, TOTAL 7.7 mg/dL (8.8-10.5); CREATININE 1.7 mg/dL (0.60-1.30); MAGNESIUM 2.5 mg/dL (1.80-2.40); PHOSPHORUS 2.3 mg/dL (2.5-4.9); POTASSIUM 3.6 mmol/L (3.5-5.1)
[2019-02-13] MEDS ORDERED: IPRATROPIUM BROMIDE 0.5 MG/2.5 ML NEB SOLUTION NEB PRN (08:00)
[2019-02-13] MEDS ORDERED: 0.9% SODIUM CHLORIDE 5 ML NEB SOLUTION NEB ONE (08:49)
[2019-02-13] MEDS: FAMOTIDINE 20 MG TABLET PO SCH ×2 (09:18→20:54)
[2019-02-13] MEDS: DEXTROSE 5%-0.45% SODIUM CHL 1,000 ML IV SCH (09:18)
[2019-02-13] MEDS: FERROUS SULFATE 325 MG EC TABLET PO SCH (09:18)
[2019-02-13] MEDS: DOCUSATE SODIUM 100 MG CAPSULE PO SCH ×2 (09:18→20:54)
[2019-02-13] MEDS: POTASSIUM PHOS/SODIUM PHOS MIXTURE 1 POWDER PACKET PO SCH ×2 (09:18→20:54)
[2019-02-13] MEDS: FLUTICASONE/VILANTEROL 200-25 MCG/INH INHALER [14] IH SCH (09:19)
[2019-02-13 11:06] VITALS: BP 108/58
[2019-02-13] MEDS: ACETAMINOPHEN 325 MG TABLET PO PRN ×2 (11:44→17:12)
[2019-02-13] MEDS: TraMADol HCL 50 MG TABLET PO PRN (14:04)
[2019-02-13 15:15] VITALS: BP 112/66
[2019-02-13] MEDS: ALBUTEROL SULFATE 2.5 MG/0.5 ML NEB SOLUTION NEB PRN ×2 (19:45→20:09)
[2019-02-13 19:46] VITALS: BP 110/69
[2019-02-13] MEDS: TEMAZEPAM 15 MG CAPSULE PO SCH (21:29)
[2019-02-14] MEDS: DEXTROSE 5%-0.45% SODIUM CHL 1,000 ML IV SCH ×2 (00:30→16:09)
[2019-02-14 01:30] VITALS: BP 105/59
[2019-02-14] MEDS: ALBUTEROL SULFATE 5 MG/ML 20 ML NEB SOLN [BULK] NEB SCH ×2 (02:00→09:36)
[2019-02-14] MEDS: IPRATROPIUM BROMIDE 0.5 MG/2.5 ML NEB SOLUTION NEB SCH ×4 (02:00→19:58)
[2019-02-14] MEDS: PIPERACILLIN/TAZO 3.375 GM/D5W 50 ML IV SCH ×4 (03:58→21:50)
[2019-02-14 06:01] VITALS: BP 101/59
[2019-02-14 06:04] LABS: BASOPHILS % (AUTO) 0.3 % (0.0-2.0); EOSINOPHILS % (AUTO) 10.4 % (1.0-6.0); HEMATOCRIT 32.1 % (41-53); HEMOGLOBIN 10.9 g/dL (13.5-17.5); LYMPHOCYTES # (AUTO) 1.6 K/uL (1.0-4.8); LYMPHOCYTES % (AUTO) 19.7 % (22.0-44.0); MEAN CORPUSCULAR HEMOGLOBIN 30.5 pg (26.0-34.0); MEAN CORPUSCULAR HGB CONC 33.9 G/dL (31.0-37.0); MEAN CORPUSCULAR VOLUME 90 fL (80-100); MONOCYTES # (AUTO) 0.7 K/uL (0.1-1.0); MONOCYTES % (AUTO) 8.5 % (2.0-9.0); NEUTROPHILS % (AUTO) 61.1 % (40.0-70.0); PLATELET COUNT (AUTO) 248 K/uL (150-450); RED BLOOD CELL COUNT(AUTO) 3.57 MIL/uL (4.50-5.90); RED CELL DISTRIBUTION WIDTH 15.2 % (11.5-14.5)
[2019-02-14 06:23] LABS: CALCIUM, TOTAL 7.6 mg/dL (8.8-10.5); CREATININE 1.67 mg/dL (0.60-1.30); POTASSIUM 3.8 mmol/L (3.5-5.1)
[2019-02-14] MEDS: DOCUSATE SODIUM 100 MG CAPSULE PO SCH ×2 (08:41→20:52)
[2019-02-14] MEDS: FERROUS SULFATE 325 MG EC TABLET PO SCH (08:41)
[2019-02-14] MEDS: FAMOTIDINE 20 MG TABLET PO SCH ×2 (08:41→20:52)
[2019-02-14] MEDS: FLUTICASONE/VILANTEROL 200-25 MCG/INH INHALER [14] IH SCH (08:41)
[2019-02-14 09:13] VITALS: BP 106/48
[2019-02-14] MEDS: ALBUTEROL SULFATE 2.5 MG/0.5 ML NEB SOLUTION NEB PRN (09:36)
[2019-02-14 11:03] VITALS: BP 105/58
[2019-02-14] MEDS: ALBUTEROL SULFATE 2.5 MG/0.5 ML NEB SOLUTION NEB SCH ×2 (14:52→19:59)
[2019-02-14 16:09] VITALS: BP 106/60
[2019-02-14] MEDS: TEMAZEPAM 15 MG CAPSULE PO SCH (20:53)
[2019-02-14] MEDS: TraMADol HCL 50 MG TABLET PO PRN (23:53)
[2019-02-14 23:57] VITALS: BP 124/76
[2019-02-15] MEDS: ALBUTEROL SULFATE 2.5 MG/0.5 ML NEB SOLUTION NEB SCH ×2 (02:00→08:00)
[2019-02-15] MEDS: IPRATROPIUM BROMIDE 0.5 MG/2.5 ML NEB SOLUTION NEB SCH ×2 (02:00→08:00)
[2019-02-15] MEDS: PIPERACILLIN/TAZO 3.375 GM/D5W 50 ML IV SCH ×2 (03:46→10:35)
[2019-02-15 04:57] VITALS: BP 112/59
[2019-02-15] MEDS: DEXTROSE 5%-0.45% SODIUM CHL 1,000 ML IV SCH (06:22)
[2019-02-15 07:02] LABS: CALCIUM, TOTAL 7.9 mg/dL (8.8-10.5); CREATININE 1.67 mg/dL (0.60-1.30); POTASSIUM 3.8 mmol/L (3.5-5.1)
[2019-02-15 07:15] LABS: BASOPHILS % (AUTO) 0.5 % (0.0-2.0); EOSINOPHILS % (AUTO) 9.1 % (1.0-6.0); HEMATOCRIT 33.6 % (41-53); HEMOGLOBIN 11.1 g/dL (13.5-17.5); LYMPHOCYTES % (AUTO) 22.5 % (22.0-44.0); MEAN CORPUSCULAR HGB CONC 32.9 G/dL (31.0-37.0); MEAN CORPUSCULAR VOLUME 91 fL (80-100); MONOCYTES # (AUTO) 0.6 K/uL (0.1-1.0); MONOCYTES % (AUTO) 7.1 % (2.0-9.0); NEUTROPHILS # (AUTO) 5.3 K/uL (1.8-7.7); NEUTROPHILS % (AUTO) 60.8 % (40.0-70.0); PLATELET COUNT (AUTO) 258 K/uL (150-450); RED BLOOD CELL COUNT(AUTO) 3.69 MIL/uL (4.50-5.90); RED CELL DISTRIBUTION WIDTH 15.4 % (11.5-14.5)
[2019-02-15 07:17] VITALS: BP 115/65
[2019-02-15] MEDS: FLUTICASONE/VILANTEROL 200-25 MCG/INH INHALER [14] IH SCH (08:18)
[2019-02-15] MEDS: FAMOTIDINE 20 MG TABLET PO SCH (08:18)
[2019-02-15] MEDS: DOCUSATE SODIUM 100 MG CAPSULE PO SCH (08:18)
[2019-02-15] MEDS: FERROUS SULFATE 325 MG EC TABLET PO SCH (10:35)
[2019-02-15 11:02] VITALS: BP 107/72
[2019-02-15] MEDS ORDERED: MUPIROCIN CALCIUM 2% 22 GM OINTMENT NASAL SCH (11:15)
== END 2019-02-15 12:50 | DRG 872 ==
LOC: EMS 09:00 → 5S 15:20
PROVIDERS: ADMIT Internal Medicine; ATTEND Internal Medicine
DX: A41.9 Sepsis, unspecified organism (principal); N17.9 Acute kidney failure, unspecified; N39.0 Urinary tract infection, site not specified; K50.90 Crohn's disease, unspecified, without complications; N13.6 Pyonephrosis; R31.9 Hematuria, unspecified; J44.9 Chronic obstructive pulmonary disease, unspecified; D50.9 Iron deficiency anemia, unspecified; N18.3 Chronic kidney disease, stage 3 (moderate); E83.39 Other disorders of phosphorus metabolism; F41.8 Other specified anxiety disorders; N31.9 Neuromuscular dysfunction of bladder, unspecified; G89.4 Chronic pain syndrome; N40.0 Benign prostatic hyperplasia without lower urinary tract symptoms; R31.0 Gross hematuria; Z79.51 Long term (current) use of inhaled steroids; Z87.442 Personal history of urinary calculi; Z28.21 Immunization not carried out because of patient refusal
CPT/HCPCS: 74176; 76770; 83036; 83735; 84100; 84145; 87040; 87081; 87086; 90686; 94640; 96374; 96375; J2270; J2405; J2543; J7030; J7042